=== PATIENT | male | born 1965 | race Caucasian/White ===

== ENCOUNTER → 2016-07-06 | Day surgery (SDC) | payer OTHER ==
[2016-07-03 10:26] VITALS: BMI 19.2
[~2016-07-06] MED LIST: LEVOFLOXACIN 500 MG IVPB 100 ML IVPB ONE; LEVOFLOXACIN 500 MG PREMIX BAG IVPB ONE; ONDANSETRON 4 MG/2 ML VIAL IVPUSH PRN; PROMETHAZINE HCL 25 MG/1 ML VIAL IVPUSH PRN; oxyCODONE HCL 5 MG TABLET PO PRN
[2016-07-06 13:09] VITALS: TEMP 98.2
--- NOTE | 2016-07-06 13:19 | OP ---
Operative Note - Note: Operative Date: 07/06/16 Pre-Operative Diagnosis: right renal stone Operation: right eswl Findings: 7mm right mid pole stone Post-Operative Diagnosis: Same as Pre-op Surgeon: Jung Allison Anesthesia: General Operative Report Dictated: Yes
[2016-07-06 13:50] VITALS: BP 141/70; PULSE 58
--- NOTE | 2016-07-06 20:58 | OP ---
DATE OF OPERATION: 07/06/2016 PREOPERATIVE DIAGNOSIS: Right renal stone. POSTOPERATIVE DIAGNOSIS: Right renal stone. PROCEDURE: Right extracorporeal shock wave lithotripsy. ATTENDING SURGEON: Mike Allison M.D. ANESTHESIA: General. OPERATION: Patient was brought in the operating room, placed in a supine position on the operating room table. Ultrasonography and fluoroscopy were performed. A 7-mm right mid pole stone was identified. The patient was then given antibiotics intravenously and general anesthesia was administered. The patient then underwent extracorporeal shock wave lithotripsy, 3000 impulses at 20 joules of power was administered to the stone. Excellent fragmentation of the stone under real time fluoroscopy and ultrasonography was noted. The patient tolerated the procedure very well. No complications were noted. DISPOSITION: Disposition of the patient to the recovery room. MIKE MURRIETA M.D. [id number]
== END | disposition home or self-care (01) ==
LOC: JASU-SURG 08:51
PROVIDERS: ATTEND Urology
PROC: 0TF3XZZ Fragmentation in Right Kidney Pelvis, External Approach (ICD-10-PCS; principal; 2016-07-06 11:00)
DX: N20.0 Calculus of kidney (principal)
CPT/HCPCS: 94760

== ENCOUNTER 2017-03-15 09:48 | Day surgery (SDC) | payer OTHER ==
[2017-03-12 14:53] VITALS: BMI 19.5
[~2017-03-15 09:48] MED LIST changes: -LEVOFLOXACIN 500 MG IVPB 100 ML IVPB ONE; -ONDANSETRON 4 MG/2 ML VIAL IVPUSH PRN; -PROMETHAZINE HCL 25 MG/1 ML VIAL IVPUSH PRN; -oxyCODONE HCL 5 MG TABLET PO PRN
[2017-03-15 10:44] VITALS: TEMP 97.3
[2017-03-15] MEDS ORDERED: MIDAZOLAM HCL 2 MG/2 ML SINGLE DOSE VIAL ONE (11:09)
[2017-03-15] MEDS ORDERED: LEVOFLOXACIN 500 MG IVPB 500 MG/100 ML BAG IVPB ONE (11:10)
[2017-03-15] MEDS ORDERED: PROPOFOL 20 ML ONE (11:12)
[2017-03-15] MEDS ORDERED: oxyCODONE HCL 5 MG TABLET PO PRN (11:43)
[2017-03-15] MEDS ORDERED: ONDANSETRON 4 MG/2 ML VIAL IVPUSH PRN (11:43)
[2017-03-15] MEDS ORDERED: LEVOFLOXACIN 500 MG PREMIX BAG IVPB ONE (11:44)
[2017-03-15] MEDS ORDERED: LACTATED RINGERS SOLUTION 1,000 ML IV SCH (11:45)
[2017-03-15] MEDS ORDERED: KETOROLAC TROMETHAMINE 30 MG/1 ML VIAL ONE (12:02)
--- NOTE | 2017-03-15 12:58 | OP ---
Operative Note - Note: Operative Date: 03/15/17 Pre-Operative Diagnosis: left renal stone Operation: left eswl Findings: 7 mm left renal stone Post-Operative Diagnosis: Same as Pre-op Surgeon: Jung Allison Anesthesia: Fractional
[2017-03-15 13:15] VITALS: BP 125/64; PULSE 52
--- NOTE | 2017-03-15 21:42 | OP ---
DATE OF OPERATION: 03/15/2017 PREOPERATIVE DIAGNOSIS: Left renal stone. POSTOPERATIVE DIAGNOSIS: Left renal stone. PROCEDURE: Left extracorporeal shock wave lithotripsy. ATTENDING: Mike Murrieta MD ANESTHESIA: Fractional. DESCRIPTION OF OPERATION: The patient was brought in the operating room and placed in a supine position on the operating room table. Ultrasonography and fluoroscopy were performed. A 7-mm left mid-pole stone was identified. Fractional anesthesia and antibiotics were administered preoperatively for surgical prophylaxis. Once anesthesia had taken effect, extracorporeal shock wave lithotripsy was started; 2500 impulses at 18 joules of power were administered to the stone. Excellent fragmentation of the stone was noted under real-time ultrasonography and fluoroscopy. The disposition of the patient was to the recovery room. MIKE MURRIETA M.D. [id number]
== END 2017-03-15 13:16 | disposition home or self-care (01) ==
LOC: JASU-SURG 09:48
PROVIDERS: ATTEND Urology
PROC: 0TF4XZZ Fragmentation in Left Kidney Pelvis, External Approach (ICD-10-PCS; principal; 2017-03-15 11:45)
DX: N20.0 Calculus of kidney (principal)

== ENCOUNTER 2020-09-09 04:40 | Day surgery (SDC) | payer OTHER ==
[2020-09-06 18:43] VITALS: BMI 19.0
[2020-09-09] MEDS ORDERED: MIDAZOLAM HCL 2 MG/2 ML SINGLE DOSE VIAL ONE ×2 (11:11→11:19)
[2020-09-09 11:56] VITALS: PULSE 52
[2020-09-09 13:27] VITALS: BP 116/71; TEMP 97.1
== END 2020-09-09 12:30 | disposition home or self-care (01) ==
LOC: JASU-SURG 04:40
PROVIDERS: ATTEND Urology
PROC: 0TF3XZZ Fragmentation in Right Kidney Pelvis, External Approach (ICD-10-PCS; principal; 2020-09-09 11:00)
DX: N20.0 Calculus of kidney (principal)